=== PATIENT | male | born 1990 ===

== ENCOUNTER 2022-03-23 19:16 | Emergency (ER) | payer SELFPAY | END 2022-03-23 23:00 | disposition left against medical advice (07) | LOC: ED 19:16 | DX: M25.522 Pain in left elbow (principal); Z53.21 Procedure and treatment not carried out due to patient leaving prior to being seen by health care provider ==

== ENCOUNTER 2022-03-24 07:01 | Emergency (ER) | payer SELFPAY ==
--- NOTE | 2022-03-24 08:27 | XRay Report ---
RIGHT ELBOW 3 VIEWS INDICATION / CLINICAL INFORMATION: Fell in tub yesterday with right elbow pain. COMPARISON: None available. FINDINGS: BONES / JOINT(S): No acute fracture or subluxation. No significant arthritis. SOFT TISSUES: There is localized soft tissue swelling overlying the olecranon. ADDITIONAL FINDINGS: None. IMPRESSION: Soft tissue swelling posterior to the olecranon without acute osseous abnormality. Signer Name: Janes Ha MD Signed: 03/24/2022 8:23 AM Workstation Name: [id number]
[2022-03-24] MEDS ORDERED: MORPHINE 4 MG/1 ML INJ IM ONE (10:46)
[2022-03-24] MEDS ORDERED: ONDANSETRON 4 MG ODT TAB PO ONE (10:46)
[2022-03-24] MEDS ORDERED: KETOROLAC 30 MG/1 ML INJ IM ONE (10:46)
[2022-03-24] MEDS ORDERED: TETANUS,DIPHTHERIA TOXOID ADULT 0.5 ML INJ IM NR ×2 (10:47→13:00)
--- NOTE | 2022-03-24 11:23 | Emergency Department Report ---
ED General Adult HPI - General Chief complaint: Laceration/Recheck/Suture Stated complaint: FALL/RT ELBOW INURY/ BLEEDING Time Seen by Provider: 03/24/22 10:16 Source: patient Mode of arrival: Ambulatory Limitations: No Limitations - History of Present Illness Initial comments: 31-year-old male with no simper medical history presents with pain in his right elbow. Patient reports he had a slip and fall accident in the bathtub last night striking his elbow on the top. States he did have significant pain and has been managing it at home with supportive therapy however pain has progressively gotten worse, unable to control the bleeding. He denies LOC, he denies dizziness, headache or vision changes, he denies injury to his neck head or back He denies use of blood thinners, he denies history of bleeding or clotting disorder, he denies numbness weakness or paresthesia of the extremity, no chest pain, no shortness of breath, no history of prior fractures or dislocation, no history of bone condition -: hour(s) Location: upper extremity Radiation: non-radiation Severity scale (0 -10): 10 Quality: stabbing, constant Consistency: constant Improves with: none Worsens with: movement Associated Symptoms: denies: confusion, chest pain, fever/chills, loss of appetite, nausea/vomiting, shortness of breath Treatments Prior to Arrival: none - Related Data Previous Rx's Medication Instructions Recorded Last Taken Type Ibuprofen [Motrin 800 MG tab] 800 mg PO Q8HR PRN #30 tablet 03/24/22 Unknown Rx cephALEXin [Keflex] 500 mg PO Q12HR #14 cap 03/24/22 Unknown Rx traMADoL [Ultram 50 MG tab] 50 mg PO Q4HR PRN #12 tablet 03/24/22 Unknown Rx Allergies Allergy/AdvReac Type Severity Reaction Status Date / Time No Known Allergies Allergy Verified 03/24/22 07:32 ED Review of Systems ROS: Stated complaint: FALL/RT ELBOW INURY/ BLEEDING Other details as noted in HPI Constitutional: denies: chills, diaphoresis, fever, weakness ENT: denies: throat pain Respiratory: denies: cough Cardiovascular: denies: chest pain Endocrine: denies: excessive sweating, intolerance to cold, intolerance to heat Gastrointestinal: denies: abdominal pain, nausea, vomiting, diarrhea Genitourinary: denies: urgency Musculoskeletal: joint swelling, arthralgia. denies: back pain, myalgia Skin: change in color Neurological: denies: headache, weakness, numbness Hematological/Lymphatic: denies: easy bleeding ED Past Medical Hx - Past Medical History Previous Medical History?: No - Surgical History Past Surgical History?: No - Social History Smoking Status: Current Every Day Smoker - Medications Home Medications: Home Medications Medication Instructions Recorded Confirmed Last Taken Type Ibuprofen [Motrin 800 MG tab] 800 mg PO Q8HR PRN #30 tablet 03/24/22 Unknown Rx cephALEXin [Keflex] 500 mg PO Q12HR #14 cap 03/24/22 Unknown Rx traMADoL [Ultram 50 MG tab] 50 mg PO Q4HR PRN #12 tablet 03/24/22 Unknown Rx ED Physical Exam - General Limitations: No Limitations General appearance: alert, other (Uncomfortable appearing female crying) - Head Head exam: Present: atraumatic - Eye Eye exam: Present: normal appearance, PERRL - ENT ENT exam: Present: normal exam, normal orophraynx - Neck Neck exam: Present: normal inspection, full ROM. Absent: tenderness - Respiratory Respiratory exam: Present: normal lung sounds bilaterally. Absent: respiratory distress - Cardiovascular Cardiovascular Exam: Present: regular rate - GI/Abdominal GI/Abdominal exam: Present: soft, normal bowel sounds. Absent: distended, tenderness - Extremities Exam Extremities exam: Present: tenderness (Pain), joint swelling, other (Swelling ecchymosis 0.5 cm laceration tenderness passive ROM over the posterior right elbow. 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 Absent: full ROM - Back Exam Back exam: Present: normal inspection, full ROM. Absent: CVA tenderness (L), muscle spasm - Neurological Exam Neurological exam: Present: alert, oriented X3, normal gait. Absent: CN II-XII intact - Psychiatric Psychiatric exam: Present: normal affect, normal mood - Skin Skin exam: Present: warm, dry, intact ED Course Vital Signs 03/24/22 07:29 Temperature 98.9 F Pulse Rate 73 Respiratory 17 Rate Blood Pressure 139/88 O2 Sat by Pulse 96 Oximetry - Laceration /Wound Repair Right Posterior Elbow Wound Location: upper extremity Wound's Depth, Shape: contused tissue Wound Explored: clean Betadine Prep?: Yes Anesthesia: 1% Lidocaine Volume Anesthetic (ccs): 1 Wound Debrided: minimal Wound Repaired With: sutures Suture Size/Type: 5:0 Number of Sutures: 1 Layer Closure?: No Sterile Dressing Applied?: Yes (Patient placed in arms) ED Medical Decision Making - Radiology Data Radiology results: report reviewed, image reviewed Soft tissue swelling of the olecranium, no fracture subluxation or dislocation" - Medical Decision Making 31-year-old male with no simper medical history presents with pain in his right elbow. Patient reports he had a slip and fall accident in the bathtub last night striking his elbow on the top. States he did have significant pain and has been managing it at home with supportive therapy however pain has progressively gotten worse, unable to control the bleeding. He denies LOC, he denies dizziness, headache or vision changes, he denies injury to his neck head or back He denies use of blood thinners, he denies history of bleeding or clotting disorder, he denies numbness weakness or paresthesia of the extremity, no chest pain, no shortness of breath, no history of prior fractures or dislocation, no history of bone condition X-rays are negative for acute fractures or dislocation, Patient is significant pain which has been addressed appropriately, due to the wound being open for a while I only put 1 suture bleeding resolved, placed him on some prophylactic antibiotics antibiotics, sling and orthopedic referral. Discharged home with ibuprofen and tramadol Keflex. Patient remained stable nontoxic-appearing, afebrile, ambulating steadily without assistance. Gone over ED findings with patient as well as plan for follow-up. Also discussed return precautions with patient, all questions and concerns addressed. Patient is stable to be discharged follow-up outpatient. Audio voice dictation device used, hence the chart might contain some dictation errors, mispronunciations, wrong spelling and wrong verbiage. Critical care attestation.: If time is entered above; I have spent that time in minutes in the direct care of this critically ill patient, excluding procedure time. ED Disposition Clinical Impression: Elbow injury, Laceration of elbow, Contusion of elbow Disposition: HOME / SELF CARE / HOMELESS Is pt being admited?: No Does the pt Need Aspirin: No Condition: Stable Instructions: Laceration Care, Adult, Elbow Contusion Prescriptions: Ibuprofen [Motrin 800 MG tab] 800 mg PO Q8HR PRN #30 tablet PRN Reason: Pain , Severe (7-10) traMADoL [Ultram 50 MG tab] 50 mg PO Q4HR PRN #12 tablet PRN Reason: Pain Referrals: SILVANO ORTEGA MD [Primary Care Provider] - 3-5 Days RAMYA WEBER MD [Staff Physician] - 3-5 Days Forms: Work/School Release Form(ED)
[2022-03-24] MEDS ORDERED: LIDOCAINE (1%) 10 MG/1 ML VIAL 20 ML MDV INFILTRATI ONE (11:49)
[2022-03-24] MEDS ORDERED: LIDOCAINE (1%) 10 MG/1 ML VIAL 20 ML MDV INFILTRATI NR (12:15)
[2022-03-24] MEDS ORDERED: LIDOCAINE-MPF (1%) 10 MG/1 ML VIAL 5 ML INFILTRATI ONE (13:00)
[2022-03-24] MEDS ORDERED: HYDROcodone/ACETAMINOPHEN 5-325 MG TAB PO ONE (13:36)
[2022-03-24 14:17] VITALS: BP 144/83
== END 2022-03-24 14:16 | disposition home or self-care (01) ==
LOC: ED 07:01
DX: S51.011A Laceration without foreign body of right elbow, initial encounter (principal); F17.200 Nicotine dependence, unspecified, uncomplicated; Z79.899 Other long term (current) drug therapy; X58.XXXA Exposure to other specified factors, initial encounter; Y93.89 Activity, other specified; Y92.89 Other specified places as the place of occurrence of the external cause; Y99.8 Other external cause status
CPT/HCPCS: 12001; 73080; 90471; 90714; 96372; 99283; J1885; J2270; J3490; Q0162

== ENCOUNTER 2022-03-25 20:47 | Emergency (ER) | payer SELFPAY | END 2022-03-25 22:10 | disposition left against medical advice (07) | LOC: ED 20:47 | DX: Z00.00 Encounter for general adult medical examination without abnormal findings (principal); Z53.21 Procedure and treatment not carried out due to patient leaving prior to being seen by health care provider ==